=== PATIENT | male | born 1980 | race Two or more races ===

== ENCOUNTER 2016-12-19 04:04 | Emergency (ER) | payer OTHER, MEDICAID ==
[~2016-12-19] VITALS: Ht 170.2 cm; Wt 77.2 kg
[2016-12-19 04:06] VITALS: BP 129/81
== END 2016-12-19 05:12 | disposition home or self-care (01) ==
LOC: ED 05:00
DX: J01.00 Acute maxillary sinusitis, unspecified (principal)
CPT/HCPCS: 99283